=== PATIENT | male | born 1965 | race Caucasian/White ===

== ENCOUNTER 2016-10-31 16:38 | Observation (INO) | payer OTHER ==
[~2016-10-31] VITALS: Ht 172.7 cm; Wt 90.0 kg
--- NOTE | ~2016-10-31 | OP ---
PATIENT NAME: DAINA GE MEDICAL RECORD: [id number] :61 LOCATION:D.M2 D.2123 ADMISSION DATE:10/31/16 SURGEON: LISA SWAN MD DATE OF OPERATION: 11/01/2016 PROCEDURES: 1. PTCA stent LAD. 2. Left heart catheterization. 3. Selective coronary angiography. 4. Left ventriculogram. PROCEDURE IN DETAIL: After informed consent was obtained and after detailed explanation of risks, benefits as well as alternative therapies, the patient elected to proceed with angiogram and angioplasty. The right radial area was prepped and draped in normal sterile fashion. The right radial artery was cannulated via modified Seldinger technique with placement of 6-Chinese sheath. All catheters exchanged through this sheath. FINDINGS: Left ventriculogram was performed in standard 30-degree NORIEGA view, reveals good cardiac wall motion throughout all segments. Overall ejection fraction estimated at 60%. SELECTIVE CORONARY ANGIOGRAPHY: 1. Left main has no significant angiographic disease. 2. Left anterior descending has a 90% stenosis at the ostium. 3. Left circumflex has no significant angiographic disease. 4. The right coronary has mild irregularities, but no flow-limiting stenosis. PTCA STENT OF THE LAD: The stent used is a 3.0 x 15 mm [place]. Result was 0% residual stenosis. OVERALL IMPRESSION: Successful percutaneous transluminal coronary angioplasty stent of the left anterior descending going from 90% initial stenosis to 0% residual stenosis. TRANSINT:[id number] Voice Confirmation ID: [id number] DOCUMENT ID: [id number] LISA SWAN MD CC: [id number] DICTATION DATE: 11/01/16 1217 GAS METER MECHANIC: 11/01/16 1312 ADM IN [id number] [place] [address]
--- NOTE | ~2016-10-31 | DS ---
PATIENT:DAINA GE :61 MEDICAL RECORD: [id number] DISCHARGE SUMMARY ADMISSION DATE: 10/31/16 DISCHARGE DATE: 11/01/16 DISCHARGE DIAGNOSES: 1. Percutaneous transluminal coronary angioplasty stent left anterior descending this admission. 2. Non-Q-wave myocardial infarction. 3. Coronary artery disease. 4. Hyperlipidemia. 5. Smoking. HOSPITAL COURSE: This is a gentleman who presents with chest pain, ruled in for non-Q-wave myocardial infarction, underwent cardiac catheterization revealing significant disease of the LAD, underwent successful PTCA stent of the LAD. Discharged home with the addition of aspirin, Plavix and Toprol to his medical regimen. Statin was not undertaken due to a history of statin intolerance. He will remain on his gemfibrazol and fish oil for hyperlipidemia. We will follow up with [facility] in 1 month. TRANSINT:[id number] Voice Confirmation ID: [id number] DOCUMENT ID: [id number] LISA SWAN MD CC: [id number] DICTATION DATE: 11/01/16 [employer] WORK[employer] COMPENSATION CLAIMS ANALYST: 11/01/161941 DIS IN 11/01/16 [facility] [address] [place] [address]
--- NOTE | ~2016-10-31 | HEMODYNAMI ---
PATIENT:DAINA GE MEDICAL RECORD: [id number] : 61 LOCATION:[facility] D2123 [facility]# [id number] ADMISSION DATE: 10/31/16 Generatedon:11/01/201612:16 Patient name: DAINA GE Patient #: [id number] SSN: [id number] : 1965 Date of study: 11/01/2016 Page: Of Hemodynamic Procedure Report Patient Data Patient Demographics Procedure consent was obtained First Name: DAINA Gender: Male Last Name: JOO : 1965 [facility] Initial: E Age: 51 year(s) Patient #: [id number] Race: SSN: [id number] Additional ID: [id number] Contact details Address: [address] [place] [address] State: [place] City: [place] Zip code: [address] Past Medical History Allergies Allergen Reaction Date Comments Reported Other allergy 11/01/2016 naproxen Admission Admission Data Admission Date: 10/31/2016 Admission Time: 18:34 Arrival Date: 10/31/2016 Arrival Time: 18:34 Admit Source: Other Insurance Payor: Medicare Room #: D.2123 Lab Results Lab Result Date: 11/01/2016 Lab Result Time: 0:00 Biochemistry Name Units Result Min Max BUN mg/dl 7 --(*---)-- 7 18 Creatinine mg/dl 1.1 --(--*-)-- 0.6 1.3 CBC Name Units Result Min Max Hemoglobin g/dl 17.6 --(----)*- 13.5 17.5 Procedure Procedure Types Cath Procedure Diagnostic Procedure C [facility] w/Coronaries PCI Procedure Coronary Stent Initial Miscellaneous Procedures Moderate Sedation up to 15 minutes Procedure Description Procedure Date Procedure Date: 11/01/2016 Procedure Start Time: 12:01 Procedure End Time: 12:16 Procedure Staff Name Function David Pina MD Performing Physician Isamar Chavira RT Scrub Mary Guillaume RN Nurse Telma Counts RT Monitor Indication Angina Procedure Data Cath Procedure Fluoroscopy Diagnostic fluoroscopy Total fluoroscopy Time: 3.3 time: 3.3 min min Diagnostic fluoroscopy Total fluoroscopy dose: 608 dose: 608 mGy mGy Contrast Material Contrast Material Type Amount (ml) Isovue 300 79 Entry Location Entry Primary Successful Side Size Upsize Upsize Entry Closure Blood ccessful Closure Location (Fr) 1 (Fr) 2 (Fr) Remarks Device Remarks Radial Right 6 Fr Mechanical artery Short Compression Estimated blood loss: 10 ml Diagnostic catheters Device Type Used For End Catheter Placement Diagnostic Terumo 5Fr LV Angiography Humble 110cm catheter Diagnostic Terumo 5Fr Left Coronary Humble 110cm catheter Angiography Diagnostic Terumo 5Fr Right Coronary Humble 110cm catheter Angiography Diagnostic Infinity 5Fr Right Coronary AR 2 MOD catheter Angiography Procedure Complications No complications Procedure Medications Medication Administration Route Dosage Radial Cocktail I.A. 1 syringe (Verapomil 2mg/Nitro 400mcg/Heparin 1500units) Oxygen NC 2 l/min Lidocaine 2% added to field 20 Heparin Flush Bag added to field 2 bags (1000units/500ml NS) 0.9% NaCl I.V. 100 ml/hr Heparin Bolus I.V. 4000 units Versed I.V. 2 mg Fentanyl I.V. 100 mcg Versed I.V. 2 mg Fentanyl I.V. 100 mcg Hemodynamics Rest HGB: 17.6 (g/dl) Heart Rate: 59 (bpm) Snapshots Pre Cath Intra NCS Post Cath Vital Signs Time Heart Resp SPO2 etCO2 [id number] NIBP (mmHg) Rhythm Pain Sedation Rate (ipm) (%) (mmHg) (mmHg) Status Level (bpm) 11:46:50 59 17 98 0 0 125/72(101) NSR 0 (11) 10(A) , No pain 11:50:51 60 19 100 0 0 131/78(93) NSR 0 (11) 10(A) , No pain 11:55:07 62 17 100 0 0 134/70(102) NSR 0 (11) 10(A) , No pain 11:59:23 55 17 100 0 0 128/74(95) NSR 0 (11) 10(A) , No pain 12:03:46 59 16 97 0 0 117/66(89) NSR 0 (11) 10(A) , No pain 12:07:56 56 17 97 0 0 116/80(108) NSR 0 (11) 9(A) , No pain 12:12:51 67 18 96 0 0 119/81(89) NSR 0 (11) 10(A) , No pain Medications Time Medication Route Dose Verified Delivered Reason Note s Effectiveness by by 11:50:42 Oxygen NC 2 l/min David Hernandez used for Yovani Guillaume RN procedure 12:00:04 0.9% NaCl I.V. 100 David Hernandez Per physician ml/hr Yovani Guillaume RN 12:00:49 Lidocaine 2% added 20ml David Hernandez for local to vial Yovani Pina MD anesthetic field 12:00:55 Heparin Flush added 2 bags David Hernandez used for Bag to Yovani Pina MD procedure (1000units/500ml field NS) 12:01:22 Fentanyl I.V. 100 mcg David Hernandez for sedation Yovani Guillaume RN 12:01:26 Versed I.V. 2 mg David Hernandez for sedation Yovani Guillaume RN 12:03:09 Radial Cocktail I.A. 1 David Hernandez for (Verapomil syringe Yovani Pina MD vasodilation 2mg/Nitro 400mcg/Heparin 1500units) 12:04:23 Heparin Bolus I.V. 4000 David Hernandez for veri fied units Yovani Guillaume RN anticoagulation with dr pina 12:05:37 Versed I.V. 2 mg David Hernandez for sedation Yovani Guillaume RN 12:05:42 Fentanyl I.V. 100 mcg David Hernandez for sedation Yovani Guillaume RN Procedure Log Time Note 11:28:33 Informed consent obtained and on chart 11:28:39 Diagnostic Cath Status : Elective 11:29:07 Indication : Angina 11:29:11 Mary Guillaume RN sent for patient. Start room use. 11:29:12 Time tracking: Regular hours 11:29:18 Plan of Care:Hemodynamics will remain stable., Cardiac rhythm will remain stable., Comfort level will be maintained., Respiratory function will remain adequate., Patient/ family verbilizes understanding of procedure., Procedure tolerated without complication., Recovers from procedure without complications.. 11:29:52 Admit Source: Other 11:29:57 Arrival Date: 10/31/2016 6:34:00 PM 11:30:07 Insurance Payor : Medicare 11:31:01 Lab Result : BUN 7 mg/dl 11:31:01 Lab Result : Hemoglobin 17.6 g/dl 11:31:01 Lab Result : Creatinine 1.1 mg/dl 11:40:31 Patient received from Med II to CCL 1 Alert and oriented. Tansferred to table in Supine position. 11:40:33 Warm blankets applied, and xu hugger turned on for patient comfort. 11:40:33 Correct patient and procedure confirmed by team. 11:40:34 ECG and BP/O2 sat monitors applied to patient. 11:45:52 Vital chart was started 11:45:53 Baseline sample Acquired. 11:46:00 Rhythm: sinus rhythm 11:46:02 Full Disclosure recording started 11:46:07 H&P Date Dictated: 11/01/2016 New H&P dictated by physician.. 11:46:09 Pre-procedure instructions explained to patient. 11:46:09 Pre-op teaching completed and patient verbalized understanding. 11:46:10 Family in waiting room. 11:46:12 Patient NPO since Midnight. 11:46:24 Patient allergic to Other allergynaproxen 11:46:26 Is the patient allergic to Iodine/contrast media? No. 11:46:28 Was the patient premedicated? No 11:46:29 Is patient on blood thinner?Yes 11:46:32 ACC The patient was administered the following blood thiners within the last 24 hours: ACCPlavix 11:46:34 Patient diabetic? No. 11:46:38 Previous problem with sedation/anesthesia? No ? 11:46:40 Snore? Yes 11:46:41 Sleep apnea? No 11:46:42 Deviated septum? No 11:46:43 Opens mouth fully? Yes 11:46:44 Sticks out tongue? Yes 11:46:46 Airway obstruction? No ? 11:46:49 Dentures? No ? 11:46:53 Pre procedure: right dorsailis pedis pulse 1+ Palpable, but thready & weak; easily obliterated 11:46:55 Pre procedure: left dorsailis pedis pulse 1+ Palpable, but thready & weak; easily obliterated 11:46:56 Patient pain scale 0/10 ?. 11:46:59 Modified Drew's test Radial < 7 seconds 11:47:12 IV patent on arrival in left hand with 0.9% NaCl at [facility]. 11:47:16 Lab results completed and on chart. 11:47:20 Right Radial & Right Groin area was prepped with chlora-prep and draped in sterile fashion 11:47:21 Alarms reviewed by R. N. 11:47:22 Sharps counted by scrub and verified by R.N. 11:50:42 Oxygen 2 l/min NC was administered by Mary Guillaume RN; used for procedure; 11:56:56 Physician paged 12:00:01 Final Timeout: patient, procedure, and site verified with staff and physician. All members of the team are in agreement. 12:00:04 0.9% NaCl 100 ml/hr I.V. was administered by Mary Guillaume RN; Per physician; 12:00:04 Right Radial site verified by team. 12:00:06 Physical assessment completed. ASA score P 2 - A patient with mild systemic disease as per David Pina MD. 12:00:09 Sedation plan: IV Moderate Sedation Versed, Fentanyl 12:00:26 Zero performed for pressure channel P1 12:00:32 Zero performed for pressure channel P1 12:00:49 Lidocaine 2% 20ml vial added to field was administered by David Pina MD; for local anesthetic; 12:00:55 Heparin Flush Bag (1000units/500ml NS) 2 bags added to field was administered by David Pina MD; used for procedure; 12::22 Fentanyl 100 mcg I.V. was administered by Mary Guillaume RN; for sedation; 12::25 Use device set Radial Dx 12:: Versed 2 mg I.V. was administered by Mary Guillaume RN; for sedation; 12:: Acist Syringe opened to sterile field. 12:: Medline Cath Pack opened to sterile field. 12:: Bag Decanter opened to sterile field. 12:: Terumo 6Fr Slender Glidesheath opened to sterile field. 12:: [place] Hermann 260cm J .035 wire opened to sterile field. 12:: Acist Hand Control opened to sterile field. 12:: Acist Manifold opened to sterile field. 12::28 Tegaderm 4 x 4 opened to sterile field. 12:01:29 MBrace Wrist Support opened to sterile field. 12:01:31 Procedure started. 12:01:36 Local anesthetic to right radial artery with Lidocaine 2% by David Pina MD.INITIAL ACCESS ONLY 12:02:12 A 6 Fr Short sheath was inserted into the Right Radial artery 12:02:37 IV Extension Set opened to sterile field. 12:03:09 Radial Cocktail (Verapomil 2mg/Nitro 400mcg/Heparin 1500units) 1 syringe I.A. was administered by David Pina MD; for vasodilation; 12:03:10 A Diagnostic Terumo 5Fr Hum[place] 110cm catheter was advanced over the wire and used for LV Angiography. 12:03:35 LV gram done using NORIEGA 12:03:41 EF : 60 % 12:03:45 Injector settings: Ml/sec: 5, Volume: 15, 12:04:23 Heparin Bolus 4000 units I.V. was administered by Mary Guillaume RN; for anticoagulation; verified with dr pina 12:04:23 A Diagnostic Terumo 5Fr [place] 110cm catheter was advanced over the wire and used for Left Coronary Angiography. 12:04:52 A Diagnostic Terumo 5Fr [place] 110cm catheter was advanced over the wire and used for Right Coronary Angiography.removed, unable to cannulate. 12:05:02 MusicGremlin BasixCompak Inflation Kit opened to sterile field. 12:05:03 Tolentino Whisper J 300cm 0.014 guide wire opened to sterile field. 12:05:37 Versed 2 mg I.V. was administered by Mary Guillaume RN; for sedation; 12:05:42 Fentanyl 100 mcg I.V. was administered by Mary Guillaume RN; for sedation; 12:05:42 A Diagnostic Infinity 5Fr AR 2 MOD catheter was advanced over the wire and used for Right Coronary Angiography. 12:06:20 Cordis 6FR XBLAD 3.5 guide catheter opened to sterile field. 12:06:38 Catheter removed. 12:08:20 6 Fr XBLAD 3.5 guide catheter was inserted over the wire 12:08:58 Whisper wire advanced. 12:10:45 Inflation Number: 1 A [place] OTW 3.0 x 15 stent was prepped and advanced across the Prox LAD. The stent was deployed at 13 SYLVIA for 0:07 (min:sec). 12:11:06 Stent catheter was removed intact over wire. 12:11:07 Wire removed. 12:11:09 Guide catheter removed. 12:11:22 Sheath removed intact; hemostasis achieved with Mechanical Compression to the Right Radial artery. 12:11:24 Procedure ended.(Physican Out) 12:11:35 Fluoroscopy time 03.30 minutes. 12:11:39 Fluoroscopy dose: 608 mGy 12:11:39 Flurop Dose total: 608 12:11:53 Contrast amount:Isovue 300 79ml. 12:11:56 Sharps counted by scrub and verified by R.N. 12:11:57 TR band inflated with 12cc of air. 12:11:58 Insertion/operative site no bleeding no hematoma. 12:12:04 Post right radial artery:stable, clean and dry 12:12:06 Post Procedure Pulses reassessed and unchanged 12:12:08 Post-procedure physical assessment completed. ASA score P 2 - A patient with mild systemic disease as per David Pina MD. 12:12:10 Post procedure rhythm: unchanged. 12:12:13 Estimated blood loss: 10 ml 12:12:14 Post procedure instruction explained to patient.Patient verbalizes understanding. 12:12:14 Patient needs reinforcement of post procedure teaching. 12:12:26 Procedure type changed to Cath procedure, Diagnostic procedure, LHC, LHC w/Coronaries, PCI procedure, Coronary Stent Initial, Miscellaneous Procedures, Moderate Sedation up to 15 minutes 12:12:31 Procedure Complication : No complications 12:12:49 Terumo TR Band Standard opened to sterile field. 12:12:52 See physician's report for complete and final results. 12:13:33 Procedure and supply charges have been captured, reviewed, submitted and are correct. 12:16:00 Vital chart was stopped 12:16:02 Report given to PCU. 12:16:05 Patient transfered to PCU with Stretcher. 12:16:12 Procedure ended. 12:16:12 Full Disclosure recording stopped 12:16:16 End room use (Document Last) Intervention Summary Intervention Notes Time ActionType Lesion and Equipment Action# Pressure Duration Attributes Used 12:10:45 Place stent Prox LAD [place] OTW 1 13 00:07 3.0 x 15 stent Device Usage Item Name Manufacture Quantity Catalog Hospital Part Current Minimal Lot# / Number Charge Number Stock Stock Serial# Code Acist Acist 1 60074 102409 294020 896567 20 Syringe Medical Systems Inc Medline Cardinal 1 [id number] 430077 81514 069670 5 Cath Pack Health Bag Microtek 1 2001S 652607 66768 671654 5 Decanter Medical Inc. Terumo 6Fr Terumo 1 [id number] 169871 051876 672798 [address] [facility] St Hermann 1 466222 647824 238816 346904 30 260cm J .035 wire Acist Hand Acist 1 32161 756320 284252 740975 5 Control Medical Systems Inc Acist Acist 1 30137 292685 463843 502961 5 Manifold Medical Systems Inc Tegaderm 4 3M 1 1626W 845332 306109 825577 5 x 4 MBrace Advanced 1 140-0250-00 213874 05560 372148 5 Wrist Vascular Support Dynamics IV Hospira 1 02219-69 236855 45032 920307 5 Extension Set Diagnostic Terumo 1 40-5013 524785 607803 838295 5 Terumo 5Fr Hum[place] 110cm catheter Merit Merit 1 IN4074 853187 993815 589693 15 BasixCompak Medical Inflation Kit Tolentino Tolentino 1 [id number] 285250 458959 978461 5 Whisper J Vascular 300cm 0.014 guide wire Diagnostic Cardinal 1 [id number] 384353 481261 874583 20 [place] [facility] 5Fr AR 2 MOD catheter Cordis 6FR Cardinal 1 [id number] 040338 351134 021820 10 XBLAD 3.5 Health guide catheter [place] OTW Medtronic 1 [id number] 906173 822416 123031 5 [id number] 3.0 x 15 stent Terumo TR Terumo 1 [id number] 984801 881460 733671 40 Band Standard Signature Audit Cogswell Stage Time Signature Unsigned Intra-Procedure 11/01/2016 Telma 12:16:27 PM Counts RT(R) Signatures Monitor : Telma Signature : Counts RT Date : Time : [address] [place] [address]
[~2016-10-31 16:38] MED LIST: DEMEROL50 MG PO; DEXILANT60 MG PO; GEMFIBROZIL600 MG PO; HYDROCODONE-APA1 TAB PO; XANAX1 MG PO
[2016-10-31 16:55] LABS: BASOPHILS 0.3 % (0-2); EOSINOPHILS 1.7 % (0-7); HEMATOCRIT 49.5 % (42.0-54.0); HEMOGLOBIN 17.6 g/dL (13.5-17.5); IMMATURE GRANULOCYTES 0.4 % (0-5); LYMPHOCYTES 38.8 % (15-50); MCH 34.2 pg (26.0-34.0); MCHC 35.6 g/dL (31.0-37.0); MCV 96.3 fL (80.0-100.0); MEAN PLATELET VOLUME 9.4 fL (7.4-10.4); MONOCYTES 6.8 % (2-11); PLATELET COUNT 284 10x3/uL (130-400); RBC 5.14 10x6/uL (4.20-6.10); RDW 12.6 % (11.5-14.5); WBC 13.6 10x3/uL (4.8-10.8)
[2016-10-31 17:12] LABS: ALBUMIN 4.1 g/dL (3.4-5.0); ALKALINE PHOSPHATASE 113 U/L (46-116); ALT (SGPT) 37 U/L (10-68); BILIRUBIN - TOTAL 0.52 mg/dL (0.2-1.3); CALC OSMOLALITY 283 mosm/kg (275-300); CALCIUM 9.2 mg/dL (8.5-10.1); CARBON DIOXIDE 23.1 mmol/L (21.0-32.0); CHLORIDE - SERUM 104 mmol/L (98-107); CREATININE - SERUM 1.1 mg/dL (0.6-1.3); GLUCOSE 153 mg/dL (74-106); POTASSIUM - SERUM 4.2 mmol/L (3.5-5.1); PROTEIN - SERUM 8.1 g/dL (6.4-8.2); SODIUM 142 mmol/L (136-145); UREA NITROGEN 7 mg/dL (7-18); eGFR NON AFRICAN AMERICAN 74 mL/min (90-120)
[2016-10-31 17:33] LABS: CHOL - HDL RATIO 3.9 ratio (2.3-4.9); CHOLESTEROL, TOTAL 136 mg/dL (0-200); CKMB 0.8 U/L (0.0-3.6); CREATINE KINASE 95 UL (21-232); HDL CHOLESTEROL 35 mg/dL (32-96); LDL CHOLESTEROL 59 mg/dL (0-100); LDL-HDL RATIO 1.7 ratio (1.5-3.5); TRIGLYCERIDE 211 mg/dL (30-200)
[2016-10-31 17:35] LABS: TROPONIN-I < 0.017 ng/mL (0.000-0.060)
--- NOTE | 2016-10-31 19:12 | NUR ---
PT ARRIVED VIA STRETCHER. NO DISTRESS NOTED.
[2016-10-31 19:46] VITALS: BP 132/72; Ht 172.7 cm; Wt 90.0 kg
[2016-10-31 20:00] VITALS: BP 132/72
[2016-10-31] MEDS ORDERED: BAYER CHEWABLE81 MG PO (20:00)
[2016-10-31] MEDS ORDERED: MULTIPLE VITAMI1 TA1 PO (20:00)
[2016-10-31] MEDS ORDERED: FISH OIL 1,0001 CA1 PO (20:01)
--- NOTE | 2016-10-31 22:52 | NUR ---
ADMISSION ASSESSMENT, HISTORY AND HOME MED LIST COMPLETED BY 1999 HRS. PT DENEID ANY DISCOMFORT. IV TO L HAND SL. O2 2LNC. PM MED GIVEN AND EXPLAINED TO PT. PT CURRENTLY WATCHING TV. WILL CONTINUE TO MONITOR. SR UP X2, CALL LIGHT WITHIN REACH.
[2016-11-01 00:21] VITALS: BP 121/62
--- NOTE | 2016-11-01 00:21 | NUR ---
VSS. PT DENIES ANY DISCOMFORT. WILL CONTINUE TO MONITOR.
[2016-11-01 01:27] LABS: CKMB 1.6 U/L (0.0-3.6); CREATINE KINASE 67 UL (21-232)
[2016-11-01 01:28] LABS: TROPONIN-I 0.829 ng/mL (0.000-0.060)
--- NOTE | 2016-11-01 02:33 | NUR ---
PT RESTING WITH EYES CLOSED. RESP EVEN AND REGULAR. SR UP X2, CALL LIGHT WITHIN REACH.
--- NOTE | 2016-11-01 04:07 | NUR ---
PT RESTING WITH EYES CLOSED. RESP EVEN AND REGULAR. SR UP X2, CALL LIGHT WITHIN REACH.
[2016-11-01 04:27] VITALS: BP 112/54
--- NOTE | 2016-11-01 06:25 | NUR ---
VSS THROUGHOUT NIGHT. SR WITH BBB PER CM. PT DENIED ANY DISCOMFORT. NEEDS MET; WILL CONTINUE TO MONITOR.
--- NOTE | 2016-11-01 07:30 | NUR ---
RESTING QUIETLY DENIES ANY NEEDS OR DISCOMFORT NAD NOTED
[2016-11-01 07:31] LABS: CKMB 1.4 U/L (0.0-3.6); CREATINE KINASE 53 UL (21-232)
[2016-11-01 07:39] LABS: TROPONIN-I 0.434 ng/mL (0.000-0.060)
--- NOTE | 2016-11-01 07:44 | NUR ---
ASSESSMENT DONE. DENIES NEEDS.
[2016-11-01 10:34] VITALS: BP 107/78
--- NOTE | 2016-11-01 11:30 | NUR ---
TO DIRECTOR OF EVENT MANAGEMENT PER BED
--- NOTE | 2016-11-01 12:16 | HP ---
PATIENT: DAINA GE MEDICAL RECORD: [id number] ACCOUNT: [id number] LOCATION:[address] : 61 ADMISSION DATE: 10/31/16 HISTORY AND PHYSICAL EXAMINATION ADMITTING DIAGNOSES: 1. Non-Q-wave myocardial infarction. 2. Angina. 3. Coronary artery disease. 4. Hyperlipidemia. 5. Statin intolerance. 6. Gastroesophageal reflux disease. HISTORY OF PRESENT ILLNESS: This is a gentleman with no previous cardiac history, with history of hyperlipidemia, statin intolerance, on gemfibrozil and fish oil, who began having chest pain yesterday. He has had a history of chest pain. He has always thought that was indigestion. The chest pain was quite severe yesterday. His troponin is elevated. PHYSICAL EXAMINATION: GENERAL APPEARANCE: Well-nourished, well-developed, appears stated age. Level of distress, comfortable. PSYCHIATRIC: Mental status, alert, normal affect. Orientation, oriented to time, place and person. EYES: Lids and conjunctiva, noninjected. No discharge, no pallor. ENT: Lips, teeth, gums, normal dentition. Oropharynx, no cyanosis, no pallor. NECK: Carotid arteries, bilateral normal upstroke, no bruits, no thrills. JUGULAR VEINS: No jugular venous pressure or distention. CERVICAL LYMPH NODES: Nontender, nonenlarged. THYROID: Not enlarged. Nontender. No nodules. LUNGS: Respiratory effort, unlabored. CHEST: Normal curvature. No thoracic deformity. No chest wall tenderness. Percussion, resonant. Auscultation, clear. No wheezes, no rales, no rhonchi. CARDIOVASCULAR: Precordial exam, nondisplaced. No heaves or pericardial thrills. Rate and rhythm, regular. Heart sounds, normal S1, normal S2. No S3, no gallop, no rub. Systolic murmur, not heard. Diastolic murmur, not heard. EXTREMITIES: No cyanosis, no edema. Peripheral pulses, full and equal in all extremities, except as noted. No bruits appreciated. ABDOMEN: Soft, nondistended. Normal aorta. No bruit. Nontender. No masses. Liver, nontender, no hepatomegaly. Spleen, nontender, no splenomegaly. MUSCULOSKELETAL: No joint tenderness. No joint swelling. No erythema. NEUROLOGICAL: Normal gait, normal strength, normal tone. SKIN: Warm and dry. REVIEW OF SYSTEMS: The patient reports easy bruising but reports no swollen glands. The patient reports no fever, no night sweats, no significant weight gain, no significant weight loss. No significant exercise tolerance. The patient reports no dry eyes, no irritation, no vision change. Patient reports no difficulty hearing and no ear pain. Patient reports no frequent nose bleeds or nose and sinus problems. Patient reports on arm pain on exertion. No shortness of breath while lying down. No history of heart murmur. Patient reports no cough, no wheezing or coughing up blood. Patient reports no abdominal pain, no vomiting. Normal appetite. No diarrhea and not vomiting blood. No nausea and no constipation. Patient reports no incontinence. No difficulty urinating. No hematuria. No increased frequency. Patient reports HISTORY AND PHYSICAL [id number] DAINA GE no muscle aches. No weakness, no arthralgias, no back pain. No swelling of the extremities. Patient reports no abnormal mole, no jaundice, no rashes. Reports no loss of consciousness. No weakness and no numbness. No seizures, dizziness, or headaches. The patient reports no depression, no sleep disturbance, feeling safe in a relationship and no alcohol abuse. Patient reports on fatigue. Reports no runny nose or sinus pressure. No itching, no hives, and no frequent sneezing. OVERALL IMPRESSION: Non-Q-wave myocardial infarction. He clearly has hemodynamically significant coronary artery disease. We will proceed with coronary angiography. Further care depends upon findings of the angiography. TRANSINT:[id number] Voice Confirmation ID: [id number] DOCUMENT ID: [id number] LISA SWAN MD at 1216 CC: [id number] DICTATION DATE: 11/01/16 1021 TRACK HOE OPERATOR: 11/01/16 1033 ADM IN [address] [place] [address]
--- NOTE | 2016-11-01 12:20 | NUR ---
RETURN FROM PICK UP AND DELIVERY DRIVER PER BED. TR-BAND TO RT WRIST.
[2016-11-01] MEDS ORDERED: PLAVIX75 MG PO (13:13)
[2016-11-01] MEDS ORDERED: TOPROL XL25 MG PO (13:14)
--- NOTE | 2016-11-01 13:20 | NUR ---
WRITTEN SCRIPTS FOR PLAVIX 75 MG #90 WITH 3 REILLS AND METOPROLOL ER 25 MG # 30 WITH NO REFILLS GIVEN TO PATIENT.
--- NOTE | 2016-11-01 16:15 | NUR ---
TR BAND OFF. DC GIVEN TO PT WITH RX
[2016-11-01 16:34] VITALS: BP 107/59
--- NOTE | 2016-11-01 16:48 | NUR ---
DC HOME PER PERSONAL CAR
== END 2016-11-01 16:49 | disposition home or self-care (01) ==
LOC: D.ER 16:38 → D.M2 18:34 → OBSVTIME 18:34 → D.M2 11-01 16:49
PROVIDERS: Emergency Medicine; ADMIT Internal Medicine Interventional Cardiology
DX: I21.4 Non-ST elevation (NSTEMI) myocardial infarction (principal); I25.119 Atherosclerotic heart disease of native coronary artery with unspecified angina pectoris; E78.5 Hyperlipidemia, unspecified; K21.9 Gastro-esophageal reflux disease without esophagitis; Z87.891 Personal history of nicotine dependence

== ENCOUNTER → 2019-04-25 09:12 | Outpatient (CLI) | payer OTHER ==
[2019-04-11 13:35] VITALS: BMI 31.1
[~2019-04-25 09:12] MED LIST changes: +ALBUTEROL SULF8.5 GM INH; +AMIODARONE HCL200 MG PO; +BAYER CHEWABLE81 MG PO; +FISH OIL 1,0001 CA1 PO; +GLUCOSAMINE CHONDROI PO; +KLONOPIN1 MG PO; +LISINOPRIL10 MG PO; +LOPID600 MG PO; +LOPRESSOR25 MG PO; +METOPROLOL TART50 MG PO; +MULTIPLE VITAMI1 TA1 PO; +PERCOCET 5-3251 TAB PO; +PLAVIX75 MG PO; +PREDNISONE20 MG PO; +STOOL SOFTENER100 M1 PO; +SYMBICORT 16010.2 GM INH; +TESTOSTERONE INJ; +TOPROL XL25 MG PO; +VIAGRA25 MG PO; +[UNRECOGNIZED DRUG - OTHER] PO
[2019-04-25 09:51] LABS: BASOPHILS 0.5 % (0-2); EOSINOPHILS 2.9 % (0-7); HEMOGLOBIN 11.9 g/dL (13.5-17.5); IMMATURE GRANULOCYTES 2.2 % (0-5); LYMPHOCYTES 20.4 % (15-50); MCH 32.6 pg (26.0-34.0); MCHC 32.2 g/dL (31.0-37.0); MCV 101.4 fL (80.0-100.0); MEAN PLATELET VOLUME 8.8 fL (7.4-10.4); MONOCYTES 5.9 % (2-11); NEUTROPHILS 68.1 % (40-80); PLATELET COUNT 491 10x3/uL (130-400); RBC 3.65 10x6/uL (4.20-6.10); RDW 13.7 % (11.5-14.5); WBC 17.1 10x3/uL (4.8-10.8)
[2019-04-25 10:00] LABS: ANION GAP 7.6 mmol/L (8-16); BILIRUBIN - TOTAL 0.29 mg/dL (0.2-1.3); CALCIUM 8.8 mg/dL (8.5-10.1); CARBON DIOXIDE 32.3 mmol/L (21.0-32.0); CREATININE - SERUM 1.3 mg/dL (0.6-1.3); POTASSIUM - SERUM 4.9 mmol/L (3.5-5.1); PROTEIN - SERUM 6.7 g/dL (6.4-8.2)
== END | disposition home or self-care (01) ==
LOC: D.LAB 09:12
PROVIDERS: ATTEND Orthopaedic Surgery
DX: I25.10 Atherosclerotic heart disease of native coronary artery without angina pectoris (principal)